=== PATIENT | female | born 1950 | race Caucasian/White ===

== ENCOUNTER 2018-01-08 11:43 | Day surgery (SDC) | payer MEDICARE, BC ==
--- NOTE | 2018-01-08 08:49 | HP ---
AMENDED REPORT: DATE OF SURGERY: 01/08/2018 HISTORY OF PRESENT ILLNESS: The patient is a 67 year-old with small inguinal bulge, small hernia versus other etiology such as lipoma etiology is unclear. She desires to proceed. She had some groin ache and small bulge in the area. PAST MEDICAL HISTORY: Hypertension, hypothyroidism. PAST SURGICAL HISTORY: section, hysterectomy. Lesion taken off of the right breast in the past. MEDICATIONS: Pravastatin, Premarin, lisinopril, carvedilol, amlodipine, aspirin. ALLERGIES: SULFA. FAMILY HISTORY: Negative in regards to this problem. SOCIAL HISTORY: No smoking or alcohol abuse. REVIEW OF SYSTEMS: Twelve systems reviewed per admission assessment. No chest pain or palpitations other systems negative or noncontributory as above and per preadmission questionnaire. She has some issues that Dr. Knox is treating and improved. She will receive pulmonary clearance to proceed with surgery. PHYSICAL EXAMINATION: GENERAL: No acute distress. HEENT: Sclerae nonicteric. NECK: No JVD. CHEST: Equal excursion, nonlabored breathing. CVS: Regular rate and rhythm. ABDOMEN: Soft, small bulge. No peritoneal signs. EXTREMITIES: No significant edema. NEURO: Alert, oriented, moving extremities symmetrically. No gross motor deficits noted. IMPRESSION: Right inguinal bulge symptomatic unclear whether small inguinal hernia versus lipoma or other etiology. I feel the patient would benefit from possible repairing with mesh. Risks and benefits explained in detail including but not limited to bleeding or infection, risk of hematoma or seroma formation, risk of small firmness under the incision, risk of ingrown hair or suture reaction, risk of mesh became infected likely would need to be removed, general risk of aches, pains, burning, numbness lower abdomen, groin, thigh or pubic area possibly fpc or chronic in nature up to 10 to 12% possible high risk of intermittent ache or twinge, overall risk of risk of hernia recurrence or lipoma adjacent to or elsewhere on her body otherwise general risk of anesthesia, deep venous thrombosis, pulmonary embolism, pneumonia, possibility of inability to improve her symptoms, risk of general aches and pains but not limited to possible chronic in nature as well as cardiopulmonary event given her comorbidities. She understands and agrees to the planned procedure and will proceed with right inguinal exploration possible repair of right inguinal hernia with mesh as an outpatient.
[~2018-01-08 11:43] MED LIST: CEFAZOLIN 2 GM-D5W BAG** 2 GM/50 ML ML IV ONE; Lactated Ringers 1,000 ML IV ONE; Lactated Ringers 1,000 ML IV SCH; Sensorcaine 0.25% 10 ML ONE
[2018-01-08] MEDS ORDERED: TORAdol 30 mg Injection IV ONE (11:44)
[2018-01-08] MEDS ORDERED: DIPRIVAN 200 MG/20 ML IV ONE (11:44)
[2018-01-08] MEDS ORDERED: SUBLIMAZE 100 MCG/2 ML IV ONE (11:44)
[2018-01-08] MEDS ORDERED: Zemuron 100 MG/10 ML IV ONE (11:44)
[2018-01-08] MEDS ORDERED: Decadron 4 MG INJ IV ONE (11:44)
[2018-01-08] MEDS ORDERED: Zofran 4 MG/2 ML VIAL IV ONE (11:44)
[2018-01-08] MEDS ORDERED: CEFAZOLIN 2 GM-D5W BAG** 2 GM/50 ML ML IV SCH (12:30)
[2018-01-08 12:56] LABS: Hemoglobin 12.8 gm/dl (12.0-16.0); Mean Cell Volume 89.5 fl (78-100); Mean Corpuscular Hemoglobin 28.6 pg (26-32); Mean Platelet Volume 9.4 fl (6-9.5); Platelet Count 430 K/mm3 (150-450); Red Blood Count 4.47 M/mm3 (4.1-5.4); Red Cell Distribution Width 14.9 % (11.5-14.0); White Blood Count 10.2 K/mm3 (4.0-10.5)
[2018-01-08 13:06] LABS: ANION GAP 14.9 MEQ/L (5-15); BLOOD UREA NITROGEN 18 mg/dL (9-20); CHLORIDE 105 mEq/L (98-107); Calcium 9.2 mg/dL (8.5-10.1); Carbon Dioxide 26.2 mEq/L (21-32); Creatinine 1 0.63 mg/dl (0.55-1.30); EST GLOMERULAR FILTRATION RATE > 60 ML/MIN; Glucose 101 MG/DL (70-110); SODIUM 142 mEq/L (136-145)
[2018-01-08] MEDS ORDERED: SUBLIMAZE 100 MCG/2 ML ONE (15:55)
[2018-01-08] MEDS ORDERED: Zofran 4 MG/2 ML VIAL ONE (15:55)
[2018-01-08] MEDS ORDERED: NORCO 5/325 MG ONE (17:25)
[2018-01-08] MEDS ORDERED: MORPHINE SULFATE 4 MG INJ IV PRN (17:28)
[2018-01-08] MEDS ORDERED: NORCO 5/325 MG PO PRN (17:28)
[2018-01-08] MEDS ORDERED: Zofran 4 MG/2 ML VIAL IV PRN (17:29)
[2018-01-08 19:09] VITALS: BP 149/72; PULSE 88; O2SAT 95
--- NOTE | 2018-01-09 08:32 | OP ---
SURGERY DATE/TIME: 01/08/2018 1410 PREOPERATIVE DIAGNOSIS: Right inguinal aches, right inguinal bulge, question small occult hernia versus lipoma or other etiology. POSTOPERATIVE DIAGNOSIS: Right inguinal hernia, small cord lipoma. PROCEDURES: 1) Right inguinal exploration with right inguinal hernia repair with mesh. 2) Excision of small cord lipoma. SURGEON: Dr. Buzz Kirkland. ANESTHESIA: General. ESTIMATED BLOOD LOSS: Minimal. INDICATIONS: As noted above. Risks and benefits explained in detail and not limited to and consent obtained. The site was confirmed in the preoperative holding area marking the patient. DESCRIPTION OF PROCEDURE AND FINDINGS: The patient is taken to the operating room. General anesthesia induced. Right groin prepped and draped in usual sterile fashion. After official time out and no disagreement with planned procedure, a transverse incision made. Dissection carried down through Yeyo fascia down to the aponeurosis external oblique split in the direction of its fibers towards the external ring. She was noted to have what appeared to be cord lipoma as well as inguinal hernia. It was carefully away from the round ligament and cord area. Lateral cord lipoma excised and passed off with 3-0 Vicryl suture LigaSure. There was noted indirect hernia sac which was opened and devoid of content. It was high ligated with 0 Prolene. Given her age and the weak tissue it was felt best to go ahead as had been discussed with the patient previously about sacrificing the round ligament in effort to close the entire internal ring reducing the overall risk of hernia recurrence. Therefore the round ligament was clamped, divided and ligated with Vicryl ties. The visible ilioinguinal and iliohypogastric nerves were protected as well as possible with the defect, internal ring and the direct hernia component imbricating down with interrupted 0 PDS in a tension-free manner. Protecting the ilioinguinal nerve as well as visible branches of the iliohypogastric nerve, it was felt the patient would benefit from mesh repair. A 2x4 piece of mesh cut to appropriate dimension secured to the fascia overlying the pubic tubercle with 0 Prolene right along Anant's ligament along the shelving portion of the inguinal ligament laterally past where the internal ring had been closed carefully keeping the ilioinguinal nerve branches above the mesh. Mesh secured medially to the rectus fascia with 0 Prolene. 0 Prolene used to transfix it to the medial aspect of the internal oblique laterally. 0 Vicryl was used to transfix the mesh in flat manner to aponeurosis in internal oblique laterally. The mesh is flat and as tension-free as possible. Copious amount of irrigation irrigating until clear. The iliohypogastric nerve visible branches then protected as possible and ilioinguinal nerve also protected. Good hemostasis noted. External oblique closed with 0 Prolene. Yeyo closed with 3-0 Vicryl. Subcu closed with 3-0 Vicryl. Skin closed with 4-0 Vicryl. Steri-Strips and sterile dressing applied. 0.25% Marcaine local had been injected along the skin incision back towards the origin of the inguinal area back towards the anterior iliac spine. Anesthesia also did a block on her. She was taken to the recovery room in stable condition. Findings discussed with the family out in the waiting area.
== END 2018-01-08 19:00 | disposition home or self-care (01) ==
LOC: SDC 11:43
PROVIDERS: ATTEND Surgery
PROC: 0YU50JZ Supplement Right Inguinal Region with Synthetic Substitute, Open Approach (ICD-10-PCS; principal; 2018-01-08)
DX: K40.90 Unilateral inguinal hernia, without obstruction or gangrene, not specified as recurrent (principal); D17.79 Benign lipomatous neoplasm of other sites; I10 Essential (primary) hypertension; E03.9 Hypothyroidism, unspecified; Z79.899 Other long term (current) drug therapy
CPT/HCPCS: 00830; 36415; 64486; 76937; 80048; 85027; 93005; C1781; J0690; J1100; J1885; J2405; J2704; J3010; A9270-GY